=== PATIENT | female | born 1965 | race Two or more races ===

== ENCOUNTER 2017-09-08 22:31 | Emergency (ER) | payer BC ==
[~2017-09-08] VITALS: Ht 160 cm; Wt 90.7 kg
[2017-09-08 23:15] VITALS: BP 145/83
[2017-09-09] MEDS ORDERED: KETOROLAC TROMETHAMINE 15 MG/ML VIAL ONE (00:19)
[2017-09-09] MEDS ORDERED: ACETAMINOPHEN W/ CODEINE#3 1 EA TABLET ONE (00:20)
--- NOTE | 2017-09-09 00:25 | NUR ---
ADVICE PT NOT TO DRIVE OR OPERATE ANY MACHINERY DUE TO PT WAS GIVEN NARCOTIC MEDICINE. PT S/O AT BEDSIDE TO TAKE PT HOME. PT VERBALIZE UNDERSTANDING.
[2017-09-09] MEDS ORDERED: ACETAMINOPHEN W/ CODEINE#3 1 EA TABLET PO ONE (00:30)
[2017-09-09] MEDS ORDERED: KETOROLAC TROMETHAMINE INJ 30 MG/ML VIAL IM ONE (00:30)
== END 2017-09-09 00:25 | disposition home or self-care (01) ==
LOC: ER 22:38
DX: M54.42 Lumbago with sciatica, left side (principal)
CPT/HCPCS: A4606; J1885; Z7610